=== PATIENT | female | born 1975 | race Caucasian/White ===

== ENCOUNTER 2024-12-31 14:48 | Emergency (ER) | payer OTHER ==
--- OUTSIDE RECORDS SUMMARY | 2024-12-31 14:50 | XMS REPORT | Continuity of Care Document ---
Author Name Unknown Address [address] [facility] [address] [place] [address] [facility] Address [address] [facility] 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, No Primary or Family Admitting Clinic dilip Unavailable Payers Payer Name Policy Type Policy Number Effective Date Expirati on Date Source [facility] [employer] 2 [id number] 2023 00:00:00 Allergies, Adverse Reactions, Alerts Allergy Name Allergy Type Status Severity Reaction(s) Onset Date Inactive Date Treating Clinician Comments Source No Known Drug Intolera nces DA Active U 07-26 00:00: 00 [facility] No Known Drug Intolera nces DA Active U 07-26 00:00: 00 [facility] Social History Social Habit Start Date Stop Date Quantity Comments Source Gender identity Alanna Ragland - External Sexual orientation Tiesha Ragland - External Sex Assigned At 1975 00:00:00 1975 00:[birth year]:00 Sweetie Ragland - External Smoking Status Start Date Stop Date Source Tobacco smoking consumption unknown Sweetie Ragland - External Medications Ordered Medication Name Filled Medication Name Start Date Stop Date Current Medication? Ordering Clinician Indication Dosage Frequency Signature (SIG) Comments Components Source Alprazolam 0.5 MG oral Tablet 06-25 00:00: 00 Yes [id number] .5mg QD Take 1 tablet (0.5 mg total) by mouth nightly as needed for sleep or anxiety Sweetie moe Tizanidine HCl 4 MG oral Tablet 06-25 00:00: 00 06-25 00:00 :00 No [id number] 4mg Take 1 tablet (4 mg total) by mouth at bedtime as needed for muscle spasms for up to 10 days (do not take with alprazolam ) Sweetie moe Ibuprofen (MOTRIN) 800 MG oral Tablet 06-25 00:00: 00 06-25 00:00 :00 No [id number] 800mg [id number] 3D Take 1 tablet (800 mg total) by mouth every 8 hours as needed for pain Sweetie moe Encounters Start Date/Time End Date/Time Encounter Type Admission Type Attending [facility] Care Department Encounter ID Source 2023-07-10 13:30:00 2023-07-10 13:30:00 Outpatient JESSICA DIAZ [id number] Sweetie Ragland 2023-06-25 16:00:00 2023-06-25 16:00:00 Outpatient RENETTA LEONARD [id number] Sweetie Ragland 2021-02-24 12:00:00 2021-02-24 12:00:00 Outpatient Kat Boyce [facility] [id number] 32 [facility]
--- NOTE | 2024-12-31 15:23 | RAD REPORT ---
EXAM: CT Head Brain Wo Cont HISTORY: HEADACHE COMPARISON: None TECHNIQUE: Multiple contiguous axial images were obtained for a CT of the brain without contrast. Sag ittal and coronal reformats were performed. One or more of the following dose reduction techniques were used: Automated exposure control, adjus tment of the mA and kV according to patient size, and iterative reconstruction. Unless otherwise specified, incidental findings do not require dedicated imaging follow-up. FINDINGS: No evidence of hydrocephalus, intracranial hemorrhage, or extra-axial fluid collection. The brain is normal in morphology. The calvarium is intact. The visualized paranasal sinuses and mastoid air cells are essentially clear . IMPRESSION: No evidence of acute intracranial abnormality.
[2024-12-31 16:18] LABS: Absolute Basophils 0.1 K/uL (0-0.5); Absolute Eosinophils 0.2 K/uL (0-0.5); Absolute Lymphocytes (CBC) 2.5 K/uL (0.7-4.9); Absolute Monocytes 0.6 K/uL (0.1-1.3); Absolute Neutrophil 5.9 K/uL (1.8-8.0); Basophils % 0.9 % (0-1.3); Hemoglobin 12.9 g/dL (12.0-15.0); Lymphocytes % 27.2 % (15.3-44.8); MCH 31.3 pg (27.0-35.0); MPV 6.9 fL (7.6-11.3); Neutrophils % 63.9 % (41.7-73.7); Platelets 456 thou/uL (152-406); RBC Red Blood Cell Count 4.13 M/uL (3.86-4.86); Red Cell Distribution Width 14.2 % (12.1-15.2)
[2024-12-31 16:27] LABS: PT Prothrombin Time 11.4 SECONDS (9.4-12.5); Protime INR 1.09
--- NOTE | 2024-12-31 16:34 | RAD REPORT ---
EXAMINATION: ONE VIEW CHEST XR CLINICAL INDICATION: Female, 49 years old.,CHEST PAIN TECHNIQUE: Frontal chest projection is submitted. Examination is limited by patient positioning and t echnique. COMPARISON: No prior exam. FINDINGS: The lungs are well inflated and clear. No pneumothorax or sizable effusion. The heart is normal in s ize. Mediastinal contours are unremarkable. IMPRESSION: No acute intrathoracic abnormalities.
[2024-12-31 16:38] LABS: ALT/SGPT 19 U/L (13-56); AST/SGOT 17 U/L (15-37); Albumin 3.5 g/dL (3.4-5.0); Albumin/Globulin Ratio 0.8 (1.1-1.8); Alkaline Phosphatase 84 U/L (45-117); BUN Blood Urea Nitrogen 13 mg/dL (7-18); Bicarbonate 26 mEq/L (21-32); Bilirubin Total 0.2 mg/dL (0.2-1.0); Globulin 4.3 g/dL (2.3-3.5); Glomerular Filtration Rate 110 ml/min (=/>90); Glucose Level 67 mg/dL (74-106); Magnesium 1.8 mg/dL (1.6-2.4); NT PRO-BNP 193 pg/mL (<125); Protein, Total 7.8 g/dL (6.4-8.2); Sodium Level 140 mEq/L (136-145)
[2024-12-31 16:39] LABS: Bilirubin Direct < 0.2 mg/dL (0-0.2)
--- NOTE | 2024-12-31 17:12 | EDPHYS ---
Physician Documentation [facility] Name: Delfina Schmitz Age: 49 yrs Sex: Female : 1975 Arrival Date: 12/31/2024 Time: 14:48 Bed 17 Private MD: ED Physician Buster Dye HPI: 12/31 15:09 This 49 yrs old Female presents to ER via Unassigned with complaints of Chest pain. ms3 15:09 49-year-old female with past medical history of hypertension and ADHD presents to [facility] department via [facility] status post syncopal episode. Patient notes she has had chest pain for the last 3 days. She rates her discomfort a 7/10. EMS notes patient's twelve-lead to show sinus tachycardia. Patient denies vomiting. She denies any alleviating or inciting factors.. 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 - Infectious Disease History:: Denies. - Social history:: Smoking status: . ROS: 15:09 Constitutional: Negative for fever, and chills. ms3 15:09 Respiratory: Negative for shortness of breath, cough, wheezing, and pleuritic chest pain, Abdomen/GI: Negative for abdominal pain, nausea, vomiting, diarrhea, and constipation, MS/Extremity: Negative for injury and deformity, Skin: Negative for injury, rash, and discoloration, 15:09 Cardiovascular: Positive for chest pain, 15:09 Neuro: Positive for headache, syncope, 15:09 All other systems are negative, Exam: 15:09 Constitutional: This is a well developed, well nourished patient who is awake, alert, ms3 and in no acute distress. Respiratory: Lungs have equal breath sounds bilaterally, clear to auscultation and percussion. No rales, rhonchi or wheezes noted. No increased work of breathing, no retractions or nasal flaring. Abdomen/GI: Soft, non-tender, with normal bowel sounds. No distension or tympany. No guarding or rebound. No evidence of tenderness throughout. 15:09 Skin: Warm, dry with normal turgor. Normal color with no rashes, no lesions, and no evidence of cellulitis. MS/ Extremity: Pulses equal, no cyanosis. Neurovascular intact. Full, normal range of motion. 15:09 Cardiovascular: Rate: tachycardic, Rhythm: regular, Pulses: no pulse deficits are appreciated, Heart sounds: normal, normal S1and S2, 17:09 ECG was reviewed by the Attending Physician. ms3 Vital Signs: 15:42 BP 147 / 82; Pulse 95; Resp 16 S; Temp 98; Pulse Ox 98% on R/A; aa5 17:00 BP 133 / 68; Pulse 88; Resp 18 S; Temp 97.5(TE); Pulse Ox 99% on R/A; aa5 MDM: 14:54 Medical Screening Exam initiated ms3 15:09 Differential diagnosis: abnormal EKG, acute myocardial infarction, anxiety, coronary ms3 artery disease ICH. 17:12 HEART Score: History: Slightly Suspicious (0), ECG: Normal (0), Age: > 45 and < 65 ms3 years (1), Risk Factors: No Risk Factors Known (0), Troponin: < or = 1 x Normal Limit (0), Total Score = 1. Data reviewed: vital signs, nurses notes, lab test result(s), EKG, radiologic studies, and as a result, I will discharge patient. Consideration of Admission/Observation Escalation of care including admission/observation considered. [place] syncope rule low risk. Counseling: I had a detailed discussion with the patient and/or guardian regarding the historical points, exam findings, and any diagnostic results supporting the discharge/admit diagnosis, lab results, radiology results, the need for outpatient follow up, to return to the emergency department if symptoms worsen or persist or if there are any questions or concerns that arise at home. Special discussion: I discussed with the patient/guardian in detail that at this point there is no indication for admission to the hospital. It is understood, however, that if the symptoms persist or worsen the patient needs to return immediately for re-evaluation. ED course: Discussed labs, EKG, chest x-ray findings with patient and her boyfriend. Patient and boyfriend wish to be discharged at this time. [place] syncope rule shows patient to be low risk. Discussed with patient not driving or placing herself in harm's way until cleared by her primary care physician. All questions were answered. 12/31 14:54 Order name: Basic Metabolic Panel; Complete Time: 16:47 ms3 12/31 14:54 Order name: CBC with Diff; Complete Time: 16:47 ms3 12/31 14:54 Order name: LFT's; Complete Time: 16:47 ms3 12/31 14:54 Order name: Magnesium; Complete Time: 16:47 ms3 12/31 14:54 Order name: NT PRO-BNP; Complete Time: 16:47 ms3 12/31 14:54 Order name: PT-INR; Complete Time: 16:47 ms3 12/31 14:54 Order name: Troponin HS; Complete Time: 16:47 ms3 12/31 14:54 Order name: XRAY Chest (1 view); Complete Time: 16:47 ms3 12/31 14:55 Order name: CT Head Brain wo Cont; Complete Time: 15:33 ms3 12/31 14:54 Order name: Cardiac monitoring; Complete Time: 16:41 ms3 12/31 14:54 Order name: EKG - Nurse/Tech; Complete Time: 17:46 ms3 12/31 14:54 Order name: IV Saline Lock; Complete Time: 16:41 ms3 12/31 14:54 Order name: Labs collected and sent; Complete Time: 16:41 ms3 12/31 14:54 Order name: O2 Per Protocol; Complete Time: 16:41 ms3 12/31 14:54 Order name: O2 Sat Monitoring; Complete Time: 16:41 ms3 EC:09 Rate is 100 beats/min. Rhythm is regular. QRS [place] is Normal. MO interval is normal. ms3 QRS interval is normal. Clinical impression: Sinus tachycardia. Interpreted by me. Reviewed by me. Administered Medications: No medications were administered Disposition Summary: 12/31/24 17:12 Discharge Ordered Notes: Location: Home ms3 Condition: Stable ms3 Diagnosis - Syncope ms3 Followup: ms3 - With: Eduardo Naranjo DO - When: 2 - 3 days - Reason: Recheck today's complaints Discharge Instructions: - Discharge Summary Sheet iw Forms: - Medication Reconciliation Form ms3 - Antibiotic Education ms3 - Prescription Opioid Use ms3 - Patient Portal Instructions ms3 - Leadership Thank You Letter ms3 Signatures: Dispatcher [employer] Daisy Otoole, RN RN aa5 Dye, Buster, DO DO ms3
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
[2024-12-31 18:09] VITALS: BP 147/82; TEMP 98; O2SAT 98
--- NOTE | 2025-01-01 13:40 | EKG ---
Test Date: 2024-12-31 Test Time: 17:05:21 Tester Equipment: TEOFILO MEASUREMENT RESULTS: Intervals: Rate: 100 RI: 140 QRSD: 80 QT: 364 QTc: 469 [place]: P: 56 RI: 140 QRS: 81 T: 68 INTERPRETIVE STATEMENTS: Normal sinus rhythm Normal ECG No previous ECG available for comparison Electronically Signed On 01-01-25 13:38:15 TALLOW MAKER by Chucho Silva
== END 2024-12-31 18:03 | disposition home or self-care (01) ==
LOC: ER 14:48
DX: R55 Syncope and collapse (principal); R07.9 Chest pain, unspecified; R51.9 Headache, unspecified; I10 Essential (primary) hypertension
CPT/HCPCS: 36415; 70450; 71045; 80048; 80076; 83735; 83880; 84484; 85025; 85610; 93005; 99284